=== PATIENT | male | born 1945 | race Two or more races ===

== ENCOUNTER 2017-04-01 17:01 | Emergency (ER) | payer MEDICARE, OTHER ==
[~2017-04-01] VITALS: Ht 165.1 cm; Wt 59.0 kg
[~2017-04-01 17:01] MED LIST: TRAMADOL HCL50 MG ORAL; VALACYCLOVIR500 MG ORAL; ZOSTRIX HP56.6 GM TP
[2017-04-01 19:38] VITALS: BP 148/79
--- NOTE | 2017-04-01 21:06 | Emergency Room Report ---
History of Present Illness General Chief Complaint: General Complaint Source: Medical Record (Kalin Crowder M.D.) Present Illness HPI 72-year-old male, history of dementia, hypertension, diabetes, chronic kidney disease, psychiatric disorder, coming from [facility] for weight loss and poor oral intake. Patient is confused, not able to give much history (Kalin Crowder M.D.) Allergies: Coded Allergies: No Known Allergies (Unverified , 06/01/15) Patient History Past Medical History: see triage record Past Surgical History: unable to obtain Pertinent Family History: unable to obtain Reviewed Nursing Documentation: PMH: Agreed, PSxH: Agreed (Kalin Crowder M.D. ) Nursing Documentation-PMH Hx Hypertension: Yes Hx COPD: Yes Hx Diabetes: Yes History Of Psychiatric Problem: Yes (Kalin Crowder M.D.) Review of Systems All Other Systems: limited - confused (Kalin Crowder M.D.) Physical Exam Vital Signs Date Time Temp Pulse Resp B/P (MAP) Pulse Ox O2 Delivery O2 Flow Rate FiO2 04/01/17 17:28 98.2 84 16 148/79 98 Room Air Sp02 EP Interpretation: reviewed, normal General Appearance: no apparent distress, thin, Chronically Ill Head: normocephalic, atraumatic Eyes: bilateral eye normal inspection, bilateral eye PERRL, bilateral eye EOMI ENT: normal ENT inspection, normal pharynx, normal voice, moist mucus membranes Neck: normal inspection, full range of motion, supple Respiratory: normal inspection, lungs clear, normal breath sounds, no respiratory distress, no retraction, no wheezing, speaking full sentences, chest symmetrical Cardiovascular #1: normal inspection, regular rate, rhythm, no edema, normal capillary refill Cardiovascular #2: 2+ radial (R), 2+ radial (L) Gastrointestinal: normal inspection, non tender, soft, non-distended, no guarding Genitourinary: no CVA tenderness Musculoskeletal: normal inspection, back normal, normal range of motion, non- tender Neurologic: responsive, motor strength/tone normal, sensory intact, other - confused Psychiatric: other - confused Skin: normal inspection, normal color, no rash, warm/dry, well hydrated, normal turgor (Kalin Crowder M.D.) Medical Decision Making Diagnostic Impression: Primary Impression: Failure to thrive Additional Impression: UTI (urinary tract infection) Qualified Codes: N30.00 - Acute cystitis without hematuria ER Course 72-year-old male, failure to thrive, not eating or drinking DDX: Dehydration, electrolyte disturbance, failure to thrive Plan: Obtain labs, ua, EKG, CXR IV fluids ER course: Patient has been monitored during ED stay, HD stable Disposition: Patient is to be admitted to [facility] D/W hospitalist Please note that this Emergency Department Report was dictated using [employer] systemstorage battery inspector and tester technology software, occasionally this can lead to erroneous entry secondary to interpretation by the dictation equipment. EKG Diagnostic Results EP Interpretation: Yes Rate: normal Rhythm: NSR ST Segments: No acute changes ASA given to patient: No Rhythm Strip EP Interpretation: Yes Rate: 70 Rhythm: NSR, no PVCs, no ectopy Chest X-ray CXR: Ordered: Yes 1 view Indication: ams EP interpretation: Yes Interpretation: No consolidation, no effusion, no PTX, no acute cardiopulmonary disease Impression: No acute disease Electronically signed by Kalin Crowder MD (Kalin Crowder M.D.) ER Course Patient signed out to me waiting for bed for weakness and failure to thrive. Patient has a UTI. Antibiotics given here. I discussed the case with his primary care DrAyah at the [facility]. Dr. Kamran Hendricks felt that patient can be discharged back to [facility] based on the labs. I discussed the case with patient and he looks stable. We'll discharge back to the [facility]. He failed outpatient therapy will need to be admitted. At this point he does not look septic. Notice of pyelonephritis. However he'll. (GO TRIPLETT M.D.) Last Vital Signs Date Time Temp Pulse Resp B/P (MAP) Pulse Ox O2 Delivery O2 Flow Rate FiO2 04/01/17 19:38 98.2 80 16 148/79 98 Room Air (Kalin Crowder M.D.) Status: improved (GO TRIPLETT M.D.) Disposition: XFER SNF Condition: Stable Scripts Cephalexin* (KEFLEX*) 500 Mg Capsule 500 MG ORAL TID, #21 CAP 0 Refills Prov: GO TRIPLETT M.D. 04/01/17 Referrals: DEB CARRILLO (PCP) Additional Instructions: followup your Dr. in 7 days. Return it worse. Kalin Crowder M.D. Apr 01, 2017 21:06 OG TRIPLETT M.D. Apr 01, 2017 23:04
[2017-04-01 21:23] LABS: BASOPHILS % (AUTO) 0.8 % (0.0-2.0); EOSINOPHILS % (AUTO) 1.2 % (0.0-3.0); HEMATOCRIT 36.7 % (42.0-52.0); HEMOGLOBIN 12.2 G/DL (14.2-18.0); LYMPHOCYTES % (AUTO) 23.5 % (20.0-45.0); MEAN CORPUSCULAR VOLUME 90 FL (80-99); MONOCYTES % (AUTO) 6.8 % (1.0-10.0); NEUTROPHILS % (AUTO) 67.7 % (45.0-75.0); PLATELET COUNT 349 K/UL (150-450); RED BLOOD COUNT 4.09 M/UL (4.70-6.10); RED CELL DISTRIBUTION WIDTH 11.3 % (11.6-14.8); WHITE BLOOD COUNT 8.5 K/UL (4.8-10.8)
[2017-04-01 21:34] LABS: ANION GAP 6 mmol/L (5-15); BLOOD UREA NITROGEN 24 mg/dL (7-18); CALCIUM 8.4 MG/DL (8.5-10.1); CARBON DIOXIDE 30 MMOL/L (21-32); CHLORIDE 100 MMOL/L (98-107); CREATININE 1.3 MG/DL (0.55-1.30); POTASSIUM 4.6 MMOL/L (3.5-5.1); SODIUM 136 MMOL/L (136-145)
[2017-04-01 21:45] LABS: ALANINE AMINOTRANSFERASE 18 U/L (12-78); ALBUMIN 3.2 G/DL (3.4-5.0); ALBUMIN/GLOBULIN RATIO 0.7 (1.0-2.7); ALKALINE PHOSPHATASE 133 U/L (46-116); ASPARTATE AMINO TRANSFERASE 14 U/L (15-37); BILIRUBIN,TOTAL 0.3 MG/DL (0.2-1.0)
[2017-04-01 21:46] LABS: APPEARANCE,URINE CLOUDY; BILIRUBIN, URINE NEGATIVE (NEGATIVE); COLOR,URINE AMBER; GLUCOSE, URINE (UA) NEGATIVE (NEGATIVE); KETONES,URINE NEGATIVE (NEGATIVE); LEUKOCYTE ESTERASE ,URINE 3+ (NEGATIVE); NITRITE,URINE NEGATIVE (NEGATIVE); PH,URINE 9 (4.5-8.0); PROTEIN,URINE 3+ (NEGATIVE); UROBILINOGEN,URINE NORMAL MG/DL (0.0-1.0)
[2017-04-01 22:35] VITALS: BP 143/87
[2017-04-01] MEDS ORDERED: Mylanta II UD 30ml ORAL PRN (23:00)
[2017-04-01] MEDS ORDERED: Morphine Sulfate 2mg/ml Inj IVP PRN (23:00)
[2017-04-01] MEDS ORDERED: Zolpidem 5mg tab ORAL PRN (23:00)
[2017-04-01] MEDS ORDERED: Miralax 17gm pkt ORAL PRN (23:00)
[2017-04-01] MEDS ORDERED: LORazepam Inj 2mg/ml 1ml IV PRN (23:00)
[2017-04-01] MEDS ORDERED: cefTRIAXone 1 GM in NS 55 ML IVPB ONE (23:00)
[2017-04-01] MEDS ORDERED: KEFLEX500 MG ORAL (23:04)
[2017-04-02 00:45] VITALS: BP 137/85
[2017-04-02 01:25] VITALS: BP 137/85
--- NOTE | 2017-04-02 09:05 | Diagnostic Imaging Report ---
Indication: Shortness of breath Technique: One view of the chest Comparison: 06/01/2015 Findings: Lungs and pleural spaces are clear. Heart size is normal. No significant interim change Impression: No acute process
--- NOTE | 2017-04-11 16:11 | Cardiology Report ---
APPROVED REPORT EKG Measurement Heart [id number] Normal sinus rhythm Normal ECG
== END 2017-04-02 01:25 ==
LOC: EDBD 17:01 → EDUNIT# 17:01 → EMR 18:45 → EDBEDREQ 21:43 → CANBEDREQ 22:59 → EMR 04-02 01:25
DX: R62.7 Adult failure to thrive (principal); N39.0 Urinary tract infection, site not specified; E11.9 Type 2 diabetes mellitus without complications; J44.9 Chronic obstructive pulmonary disease, unspecified; I10 Essential (primary) hypertension
CPT/HCPCS: 36415; 71045; 80053; 81003; 83880; 84484; 85025; 87086; 87181; 93005; 96361; 96365; 96375; 99284; J0696

== ENCOUNTER 2017-07-06 19:25 | Inpatient (IN) | payer MEDICARE, OTHER ==
[~2017-07-06] VITALS: Ht 172.7 cm; Wt 46.7 kg
[~2017-07-06 19:25] MED LIST changes: +KEFLEX500 MG ORAL
[2017-07-06 19:32] VITALS: BP 127/65
[2017-07-06] MEDS ORDERED: ZINC SULFATE220 M1 ORAL (19:35)
[2017-07-06] MEDS ORDERED: MULTIVITAMINS1 EAC2 ORAL (19:35)
[2017-07-06] MEDS ORDERED: NOVOLIN N100 UNIT/1 SUBQ (19:35)
[2017-07-06] MEDS ORDERED: ZOLOFT25 MG ORAL (19:35)
[2017-07-06] MEDS ORDERED: PROBIOTIC1 EAC2 PO (19:35)
[2017-07-06] MEDS ORDERED: ATORVASTATIN CA20 MG ORAL (19:35)
[2017-07-06] MEDS ORDERED: MEGESTROL400 MG/12 PO (19:35)
[2017-07-06] MEDS ORDERED: HYDROCODON-ACE1 EA15 ORAL (19:35)
[2017-07-06] MEDS ORDERED: CATAPRES0.1 MG ORAL (19:35)
[2017-07-06] MEDS ORDERED: ACETAMINOPHEN325 M1 ORAL (19:35)
[2017-07-06] MEDS ORDERED: VITAMIN C500 M1 ORAL (19:35)
[2017-07-06] MEDS ORDERED: MIRTAZAPINE15 MG ORAL (19:35)
[2017-07-06] MEDS ORDERED: SYNTHROID25 MCG ORAL (19:35)
[2017-07-06] MEDS ORDERED: PROTONIX40 MG ORAL (19:35)
[2017-07-06] MEDS ORDERED: HUMULIN R100 UNIT/1 SUBQ (19:35)
[2017-07-06] MEDS ORDERED: Acetaminophen 650 MG SUPP RECTAL ONE (20:00)
--- NOTE | 2017-07-06 20:28 | Emergency Room Report ---
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 Also patient had further change of his mental status as well as increased weakness. Any additional information. He was found to be febrile fever of 101. Allergies: Coded Allergies: No Known Allergies (Unverified , 06/01/15) Patient History Past Medical History: see triage record Past Surgical History: none Pertinent Family History: none Reviewed Nursing Documentation: PMH: Agreed; PSxH: Agreed Nursing Documentation-PMH Past Medical History: No History, Except For Hx Hypertension: Yes - former gangrene, HF Hx COPD: Yes Hx Diabetes: Yes Review of Systems All Other Systems: limited Physical Exam Vital Signs Date Time Temp Pulse Resp B/P (MAP) Pulse Ox O2 Delivery O2 Flow Rate FiO2 07/06/17 19:18 99.9 93 18 125/60 94 Room Air 99.9 Sp02 EP Interpretation: reviewed, normal General Appearance: cachetic, lethargic, Chronically Ill Head: normocephalic, atraumatic Eyes: bilateral eye normal inspection, bilateral eye PERRL, bilateral eye EOMI ENT: normal ENT inspection, normal pharynx, moist mucus membranes Neck: normal inspection, full range of motion, supple Respiratory: lungs clear, normal breath sounds, no respiratory distress Cardiovascular #1: normal inspection, regular rate, rhythm, normal capillary refill Cardiovascular #2: 2+ radial (R), 2+ radial (L) Gastrointestinal: normal inspection, non tender, soft, non-distended, no guarding Genitourinary: no CVA tenderness Musculoskeletal: normal inspection, back normal, normal range of motion, non- tender Neurologic: other - NONVERBAL, NOT RESPONSIVE, MOVING EXT SPONT Psychiatric: other Skin: normal inspection, normal color, no rash, warm/dry, well hydrated, normal turgor Medical Decision Making Diagnostic Impression: Primary Impression: Fever Additional Impressions: Renal failure Pneumonia ER Course 72-year-old male, bedbound, presenting with increased altered mental status as well as fever DDX: Sepsis 2/2 UTI, PNA, bacteremia ACS, dehydration Plan: Obtain labs including cbc, bmp, blood culture, blood gas, lactate, ua, ucx CXR EKG ER course: Patient's BP has remained stable with MAP > 65 Given broad spectrum abx - vancomycin and zosyn Disposition: Patient will admitted to telemetry D/W Hospitalist Dr Deb Carrillo Please note that this Emergency Department Report was dictated using [employer] stars technology software, occasionally this can lead to erroneous entry secondary to interpretation by the dictation equipment. EKG Diagnostic Results EP Interpretation: Yes Rate: normal Rhythm: NSR ST Segments: No acute changes ASA given to patient: No Rhythm Strip EP Interpretation: Yes Rate: 91 Rhythm: NSR, no PVCs, no ectopy Chest X-ray CXR: Ordered: Yes 1 view Indication: Fever EP interpretation: Yes Interpretation: R INFILTRATE Impression: R INFILTRATE Electronically signed by Kalin Crowder MD Laboratory Tests Test 07/06/17 19:40 07/06/17 19:50 Urine Color Pale yellow Urine Appearance Clear Urine pH 5 (4.5-8.0) Urine Specific [place] 1.010 (1.005-1.035) Urine Protein 3+ (NEGATIVE) H Urine Glucose (UA) 2+ (NEGATIVE) H Urine Ketones Negative (NEGATIVE) Urine Occult Blood 4+ (NEGATIVE) H Urine Nitrite Negative (NEGATIVE) Urine Bilirubin Negative (NEGATIVE) Urine Urobilinogen Normal MG/DL (0.0-1.0) Urine Leukocyte Esterase 2+ (NEGATIVE) H Urine RBC 10-15 /HPF (0 - 0) H Urine WBC 5-10 /HPF (0 - 0) H Urine Squamous Epithelial Cells None /LPF (NONE/OCC) Urine Amorphous Sediment Moderate /LPF (NONE) H Urine Bacteria Few /HPF (NONE) White Blood Count 6.3 K/UL (4.8-10.8) Red Blood Count 3.45 M/UL (4.70-6.10) L Hemoglobin 9.9 G/DL (14.2-18.0) L Hematocrit 30.7 % (42.0-52.0) L Mean Corpuscular Volume 89 FL (80-99) Mean Corpuscular Hemoglobin 28.8 PG (27.0-31.0) Mean Corpuscular Hemoglobin Concent 32.4 G/DL (32.0-36.0) Red Cell Distribution Width 18.0 % (11.6-14.8) H Platelet Count 116 K/UL (150-450) L Mean Platelet Volume 6.0 FL (6.5-10.1) L Neutrophils (%) (Auto) % (45.0-75.0) Lymphocytes (%) (Auto) % (20.0-45.0) Monocytes (%) (Auto) % (1.0-10.0) Eosinophils (%) (Auto) % (0.0-3.0) Basophils (%) (Auto) % (0.0-2.0) Neutrophils % (Manual) Pending Lymphocytes % (Manual) Pending Platelet Estimate Pending Platelet Morphology Pending Sodium Level 143 MMOL/L (136-145) Potassium Level 4.5 MMOL/L (3.5-5.1) Chloride Level 109 MMOL/L (98-107) H Carbon Dioxide Level 24 MMOL/L (21-32) Anion Gap 10 mmol/L (5-15) Blood Urea Nitrogen 40 mg/dL (7-18) H Creatinine 2.0 MG/DL (0.55-1.30) H Estimate Glomerular Filtration Rate 33.2 mL/min (>60) Glucose Level 200 MG/DL (74-106) H Lactic Acid Level 2.70 mmol/L (0.66-2.22) H Calcium Level 9.0 MG/DL (8.5-10.1) Total Bilirubin 0.5 MG/DL (0.2-1.0) Aspartate Amino Transferase (AST) 36 U/L (15-37) Alanine Aminotransferase (ALT) 20 U/L (12-78) Alkaline Phosphatase 84 U/L (46-116) Total Creatine Kinase 88 U/L (26-308) Troponin I 0.000 ng/mL (0.000-0.056) Pro-B-Type Natriuretic Peptide 7602 pg/mL (0-125) H Total Protein 6.6 G/DL (6.4-8.2) Albumin 2.0 G/DL (3.4-5.0) L Globulin 4.6 g/dL Albumin/Globulin Ratio 0.4 (1.0-2.7) L Last Vital Signs Date Time Temp Pulse Resp B/P (MAP) Pulse Ox O2 Delivery O2 Flow Rate FiO2 07/06/17 19:32 101.1 93 22 127/65 94 Room Air 101.1 Disposition: ADMITTED INPATIENT Condition: Serious Referrals: DEB CARRILLO (PCP) Kalin Crowder M.D. Jul 06, 2017 20:28
[2017-07-06 20:51] LABS: HEMATOCRIT 30.7 % (42.0-52.0); HEMOGLOBIN 9.9 G/DL (14.2-18.0); MEAN CORPUSCULAR VOLUME 89 FL (80-99); PLATELET COUNT 116 K/UL (150-450); RED BLOOD COUNT 3.45 M/UL (4.70-6.10); WHITE BLOOD COUNT 6.3 K/UL (4.8-10.8)
[2017-07-06 20:59] LABS: APPEARANCE,URINE CLEAR; BILIRUBIN, URINE NEGATIVE (NEGATIVE); COLOR,URINE PALE YELLOW; GLUCOSE, URINE (UA) 2+ (NEGATIVE); KETONES,URINE NEGATIVE (NEGATIVE); LEUKOCYTE ESTERASE ,URINE 2+ (NEGATIVE); NITRITE,URINE NEGATIVE (NEGATIVE); PH,URINE 5 (4.5-8.0); PROTEIN,URINE 3+ (NEGATIVE); UROBILINOGEN,URINE NORMAL MG/DL (0.0-1.0)
[2017-07-06] MEDS ORDERED: Vancomycin 1 GM in NS 275 ML IVPB ONE (21:00)
[2017-07-06] MEDS ORDERED: Piperacillin/Tazobactam 3.375 GM in NS 55 ML IV ONE (21:00)
[2017-07-06 21:01] LABS: ANION GAP 10 mmol/L (5-15); BLOOD UREA NITROGEN 40 mg/dL (7-18); CARBON DIOXIDE 24 MMOL/L (21-32); CHLORIDE 109 MMOL/L (98-107); POTASSIUM 4.5 MMOL/L (3.5-5.1); SODIUM 143 MMOL/L (136-145)
[2017-07-06 21:12] LABS: ALANINE AMINOTRANSFERASE 20 U/L (12-78); ALBUMIN/GLOBULIN RATIO 0.4 (1.0-2.7); ALKALINE PHOSPHATASE 84 U/L (46-116); ASPARTATE AMINO TRANSFERASE 36 U/L (15-37); BILIRUBIN,TOTAL 0.5 MG/DL (0.2-1.0); CREATINE KINASE 88 U/L (26-308)
[2017-07-06 21:42] VITALS: BP 132/77
[2017-07-06] MEDS ORDERED: Albuterol/Ipratropium 3ml neb HHN PRN (22:00)
[2017-07-06] MEDS ORDERED: Promethazine/Codeine 5ml UD ORAL PRN (22:00)
[2017-07-06] MEDS ORDERED: Miralax 17gm pkt ORAL PRN (22:00)
[2017-07-06] MEDS ORDERED: Norco 5mg/325mg tab ORAL PRN (22:00)
[2017-07-06] MEDS ORDERED: LORazepam Inj 2mg/ml 1ml IV PRN (22:00)
[2017-07-06] MEDS ORDERED: Morphine Sulfate 4mg/ml Inj IVP PRN (22:00)
[2017-07-06 23:57] VITALS: BP 120/79
[2017-07-07] MEDS ORDERED: LORazepam Inj 2mg/ml 1ml IV ONE (00:15)
[2017-07-07 02:44] VITALS: BP 146/74
[2017-07-07 04:35] VITALS: BP 120/64
[2017-07-07 04:45] VITALS: BP 113/76
[2017-07-07] MEDS ORDERED: MEGESTROL400 MG/11 PO (06:07)
[2017-07-07] MEDS ORDERED: CLONIDINE0.1 MG PO (06:07)
[2017-07-07] MEDS ORDERED: PRO-STAT LIQUID30 ML ORAL (06:07)
[2017-07-07] MEDS ORDERED: NovoLOG Insulin Flexpen SUBQ SCH (06:30)
[2017-07-07] MEDS ORDERED: Levothyroxine 25mcg tab ORAL SCH (06:30)
[2017-07-07 08:00] VITALS: BP 120/62
[2017-07-07] MEDS ORDERED: Heparin 5000 units/ml inj SUBQ SCH (09:00)
[2017-07-07] MEDS ORDERED: Cefepime HCl 2 GM in D5W 110 ML IV SCH (09:00)
[2017-07-07] MEDS ORDERED: Sertraline 50mg tab ORAL SCH (09:00)
--- NOTE | 2017-07-07 12:11 | Consultation ---
History of Present Illness General Date patient seen: Jul 07, 2017 Chief Complaint: Fever Present Illness HPI 72-year-old male, bedbound, history of COPD, heart failure, with gangrene status post surgery with current sutures in place, diabetes, full code, presenting with fever. Also patient had further change of his mental status as well as increased weakness. Any additional information. He was found to be febrile fever of 101. Pt is admitted to telemetry for further work up. Allergies: Coded Allergies: No Known Allergies (Unverified , 06/01/15) Medication History Scheduled Amino Acids/Protein Hydrolys (Pro-Stat Liquid), 30 ML ORAL TWICE A DAY, ( Reported) Ascorbic Acid* (Vitamin C*), 500 MG ORAL DAILY, (Reported) Atorvastatin Calcium* (Atorvastatin Calcium*), 20 MG ORAL BEDTIME, (Reported) Levothyroxine Sodium* (Synthroid*), 25 MCG ORAL DAILY, (Reported) Megestrol Acetate (Megestrol Acetate), 400 MG PO BID, (Reported) Mirtazapine* (Remeron*), 15 MG ORAL BEDTIME, (Reported) Multivitamins* (Multivitamins*), 1 TAB ORAL DAILY, (Reported) Pantoprazole* (Protonix*), 40 MG ORAL DAILY, (Reported) Sertraline Hcl* (Zoloft*), 25 MG ORAL DAILY, (Reported) Zinc Sulfate (Zinc Sulfate*), 220 MG ORAL DAILY, (Reported) Scheduled PRN Acetaminophen* (Acetaminophen 325MG Tablet*), 500 MG ORAL Q4H PRN for For Pain, (Reported) Clonidine HCl (Clonidine HCl), 0.1 MG PO Q6HR PRN for For High Blood Pressure, ( Reported) Hydrocodone/Acetaminophen 5-325* (Hydrocodone/Acetaminophen 5-325*), 1 TAB ORAL Q4H PRN for For Pain, (Reported) Miscellaneous Medications Insulin Regular, Human (Humulin R), 0 SUBQ, (Reported) Lactobacillus Acidophilus (Probiotic), 1 EACH PO, (Reported) Nph, Human Insulin Isophane* (Novolin N*), 0 SUBQ, (Reported) Discontinued Medications Capsaicin (Zostrix Hp), 1 APPLIC TP BID PRN for For Pain Discontinued Reason: Therapy completed Cephalexin* (Keflex*), 500 MG ORAL TID Discontinued Reason: Therapy completed Clonidine Hcl* (Catapres*), 0.1 MG ORAL EVERY 6 HOURS, (Reported) Discontinued Reason: MD discontinued med Megestrol Acetate (Megestrol Acetate), 400 MG PO, (Reported) Discontinued Reason: Medication dose changed Tramadol Hcl* (Ultram*), 50 MG ORAL Q6H PRN for For Pain Discontinued Reason: MD discontinued med Valacyclovir Hcl* (Valtrex*), 1,000 MG ORAL TID Discontinued Reason: Therapy completed Patient History Healthcare decision maker Lashonda Lackey Resuscitation status Full Code Advanced Directive on File Past Medical/Surgical History Past Medical/Surgical History: (1) COPD (chronic obstructive pulmonary disease) Review of Systems Constitutional: Reports: no symptoms Eye: Reports: no symptoms ENT: Reports: no symptoms Cardiovascular: Reports: no symptoms Gastrointestinal: Reports: no symptoms Physical Exam General Appearance: WD/WN, mild distress Lines, tubes and drains: peripheral HEENT: normocephalic, atraumatic Neck: non-tender, normal alignment Respiratory/Chest: chest wall non-tender, normal breath sounds Abdomen: normal bowel sounds, non tender Genitourinary/Rectal: normal genital exam Extremities: normal range of motion Last 24 Hour Vital Signs Date Time Temp Pulse Resp B/P (MAP) Pulse Ox O2 Delivery O2 Flow Rate FiO2 07/07/17 09:59 98 Nasal Cannula 2.0 28 07/07/17 09:58 Nasal Cannula 2.0 28 07/07/17 08:00 97.0 68 19 120/62 99 Nasal Cannula 2.0 97.0 07/07/17 07:10 64 18 Nasal Cannula 2.0 28 07/07/17 04:55 75 07/07/17 04:45 96.1 71 19 113/76 100 Room Air 2.0 96.1 07/07/17 04:45 98.0 77 29 120/64 93 Room Air 1.0 100 98.0 07/07/17 04:35 98.0 77 29 120/64 93 Room Air 1.0 98.0 07/07/17 02:44 97.8 20 20 146/74 97 Room Air 2.0 100 97.8 07/06/17 23:57 99.5 87 22 120/79 97 Room Air 2.0 97 99.5 07/06/17 21:51 99.8 4/9/18 21:42 99.8 84 19 132/77 94 Room Air 2.0 94 99.8 07/06/17 21:21 101.1 07/06/17 19:32 101.1 93 22 127/65 94 Room Air 101.1 07/06/17 19:18 99.9 93 18 125/60 94 Room Air 99.9 Intake and Output 07/06/17 07/07/17 19:00 07:00 Intake Total 150 ml Output Total 450 ml Balance -300 ml Intake Oral 0 ml IV Total 150 ml Output Urine Total 450 ml # Bowel Movements 2 Laboratory Tests Test 07/06/17 19:40 07/06/17 19:50 07/06/17 23:23 Urine Color Pale yellow Urine Appearance Clear Urine pH 5 (4.5-8.0) Urine Specific [place] 1.010 (1.005-1.035) Urine Protein 3+ (NEGATIVE) H Urine Glucose (UA) 2+ (NEGATIVE) H Urine Ketones Negative (NEGATIVE) Urine Occult Blood 4+ (NEGATIVE) H Urine Nitrite Negative (NEGATIVE) Urine Bilirubin Negative (NEGATIVE) Urine Urobilinogen Normal MG/DL (0.0-1.0) Urine Leukocyte Esterase 2+ (NEGATIVE) H Urine RBC 10-15 /HPF (0 - 0) H Urine WBC 5-10 /HPF (0 - 0) H Urine Squamous Epithelial Cells None /LPF (NONE/OCC) Urine Amorphous Sediment Moderate /LPF (NONE) H Urine Bacteria Few /HPF (NONE) White Blood Count 6.3 K/UL (4.8-10.8) Red Blood Count 3.45 M/UL (4.70-6.10) L Hemoglobin 9.9 G/DL (14.2-18.0) L Hematocrit 30.7 % (42.0-52.0) L Mean Corpuscular Volume 89 FL (80-99) Mean Corpuscular Hemoglobin 28.8 PG (27.0-31.0) Mean Corpuscular Hemoglobin Concent 32.4 G/DL (32.0-36.0) Red Cell Distribution Width 18.0 % (11.6-14.8) H Platelet Count 116 K/UL (150-450) L Mean Platelet Volume 6.0 FL (6.5-10.1) L Neutrophils (%) (Auto) % (45.0-75.0) Lymphocytes (%) (Auto) % (20.0-45.0) Monocytes (%) (Auto) % (1.0-10.0) Eosinophils (%) (Auto) % (0.0-3.0) Basophils (%) (Auto) % (0.0-2.0) Differential Total Cells Counted 100 Neutrophils % (Manual) 86 % (45-75) H Lymphocytes % (Manual) 9 % (20-45) L Monocytes % (Manual) 3 % (1-10) Eosinophils % (Manual) 0 % (0-3) Basophils % (Manual) 0 % (0-2) Band Neutrophils 2 % (0-8) Platelet Estimate Decreased L Platelet Morphology Normal Hypochromasia 1+ Anisocytosis 1+ Sodium Level 143 MMOL/L (136-145) Potassium Level 4.5 MMOL/L (3.5-5.1) Chloride Level 109 MMOL/L (98-107) H Carbon Dioxide Level 24 MMOL/L (21-32) Anion Gap 10 mmol/L (5-15) Blood Urea Nitrogen 40 mg/dL (7-18) H Creatinine 2.0 MG/DL (0.55-1.30) H Estimat Glomerular Filtration Rate 33.2 mL/min (>60) Glucose Level 200 MG/DL (74-106) H Lactic Acid Level 2.70 mmol/L (0.66-2.22) H 1.70 mmol/L (0.66-2.22) Calcium Level 9.0 MG/DL (8.5-10.1) Total Bilirubin 0.5 MG/DL (0.2-1.0) Aspartate Amino Transf (AST/SGOT) 36 U/L (15-37) Alanine Aminotransferase (ALT/SGPT) 20 U/L (12-78) Alkaline Phosphatase 84 U/L (46-116) Total Creatine Kinase 88 U/L (26-308) Troponin I 0.000 ng/mL (0.000-0.056) Pro-B-Type Natriuretic Peptide 7602 pg/mL (0-125) H Total Protein 6.6 G/DL (6.4-8.2) Albumin 2.0 G/DL (3.4-5.0) L Globulin 4.6 g/dL Albumin/Globulin Ratio 0.4 (1.0-2.7) L Height (Feet): 5 Height (Inches): 8.00 Weight (Pounds): 103 Assessment/Plan Problem List: (1) Shingles ICD Codes: B02.9 - Zoster without complications SNOMED: 7052391 (2) COPD (chronic obstructive pulmonary disease) ICD Codes: J44.9 - Chronic obstructive pulmonary disease, unspecified SNOMED: 76549394 Assessment/Plan broad spectrum abx check cultures wound care respiratory treatment dvt prophylaxis John Zuñiga MD Jul 07, 2017 12:11
--- NOTE | 2017-07-07 12:35 | Diagnostic Imaging Report ---
Indication: Chest pain Technique: One view of the chest Comparison: 04/01/2017 Findings: Infiltrates are seen in the left perihilar region and right infrahilar region. There is also retrocardiac consolidation. The pleural spaces are clear. The heart size is normal Impression: Bilateral infiltrates as described, likely pneumonia
--- NOTE | 2017-07-07 16:23 | Cardiology Report ---
APPROVED REPORT EKG Measurement Heart [id number] Normal sinus rhythm Normal ECG
--- NOTE | 2017-07-07 18:22 | Discharge Summary ---
Discharge Summary Discharge Summary Discharge Summary DATE OF ADMISSION: 07/06/2017 DATE OF DISCHARGE: 07/07/2017 CONSULTANTS: Dr. 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 There was also noted change of his mental status and increased weakness, he was febrile temperature of 101. On evaluation at ED, blood work showed a lactic acid of 2.7, creatinine was 2.0 , BNP was elevated to 7602, urinalysis with 5-10 WBC, 10-15 RBC, 2+ leukocyte esterase, 4+ occult blood, 3+ protein, 2+ glucose. Chest x-ray showed bilateral infiltrates, likely pneumonia. He was then admitted for sepsis and pneumonia, he was given respiratory treatment. He was started on cefepime and vancomycin. He was eventually transferred to [place] to continue medical treatment. FINAL DIAGNOSES: Sepsis Fever Pneumonia Acute kidney injury/renal failure DISPOSITION: Patient was transferred to [facility] DISCHARGE MEDICATIONS: Refer to Discharge Medication List. I have been assigned to dictate discharge summary on this account, and I was not involved in the patient's management. Juliana Casper NP Jul 07, 2017 18:22
[2017-07-08] MEDS ORDERED: Vancomycin 1 GM in D5W 275 ML IVPB SCH (22:00)
== END 2017-07-07 10:41 | disposition short-term general hospital (02) | DRG 720 ==
LOC: EDBD 19:25 → EMR 19:53 → 2E 23:30 → EDBEDREQ 07-07 03:32 → 2E 07-07 05:05
DX: A41.9 Sepsis, unspecified organism (principal); N17.9 Acute kidney failure, unspecified; J18.9 Pneumonia, unspecified organism; I50.9 Heart failure, unspecified; J44.9 Chronic obstructive pulmonary disease, unspecified; E11.9 Type 2 diabetes mellitus without complications; B02.9 Zoster without complications
CPT/HCPCS: 36415; 71045; 80053; 81003; 82550; 82962; 83605; 83880; 84484; 85007; 85025; 87040; 87081; 93005; 94664; 94760; J1815